=== PATIENT | male | born 1980 | race Caucasian/White ===

== ENCOUNTER 2017-02-20 18:53 | Emergency (ER) | payer MEDICAID ==
[~2017-02-20] VITALS: Ht 182.9 cm; Wt 108.9 kg
[2017-02-20 19:14] VITALS: BP 151/90
--- NOTE | 2017-02-20 21:42 | NUR ---
PT TAKEN TO BED 8
--- NOTE | 2017-02-20 21:50 | NUR ---
36/M c/o dizziness x1 week and also reports having chest pain this am. Pt denies chest pain or any pain at this time upon assessment. Pt assisted into a gown, placed on rectification printer, pulse oximetry and blood pressure monitoring. VSS. Lungs clear bilaterally, dry non productive cough noted. Pt report severe dizziness, denies syncope or loss of conciousness. Denies medical hx. Pt states he went to see PMD and was dx with bronchitis and prescribed a cough syrup and inhaler but pt states "I don't feel any better and the dizziness is still bothering me." AOX4, qatari speaking, clear speech.
--- NOTE | 2017-02-20 21:54 | NUR ---
Dr. Bah evaluating patient at bedside.
--- NOTE | 2017-02-20 22:21 | NUR ---
Lab at bedside for blood draw.
[2017-02-20 22:34] LABS: MEAN CORPUSCULAR HGB CONC 32 g/dL (33-37); WHITE BLOOD COUNT (AUTO) 12.8 K/uL (4.8-10.8)
[2017-02-20 22:38] LABS: HEMATOCRIT 46.7 % (36-52); MEAN CORPUSCULAR HEMOGLOBIN 26 pg (27-31); MEAN CORPUSCULAR VOLUME 82 fL (80-94); PLATELET COUNT (AUTO) 317 K/uL (140-450); RED BLOOD CELL COUNT(AUTO) 5.71 MIL/uL (4.20-6.10); RED CELL DISTRIBUTION WIDTH 15.1 % (11.6-13.7)
[2017-02-20 22:44] LABS: CARBON DIOXIDE 28.8 mmol/L (21-32); CREATININE 0.9 mg/dL (0.7-1.3); POTASSIUM 3.8 mmol/L (3.5-5.1)
[2017-02-20 22:46] LABS: EOSINOPHILS % (MANUAL) 2 % (0-4); LYMPHOCYTES % (MANUAL) 32 % (20-46); MONOCYTES % (MANUAL) 3 % (5-12)
--- NOTE | 2017-02-20 22:55 | NUR ---
Patient appears to be resting comfortably in bed. Vital Signs within normal limits. Respirations even and unlabored.
[2017-02-20 23:26] VITALS: BP 141/87
--- NOTE | 2017-02-20 23:26 | NUR ---
Patient discharged with v/s stable. Written and verbal after care instructions given and explained. Patient alert, oriented and verbalized understanding of instructions. Ambulatory with steady gait. All questions addressed prior to discharge. ID band removed. Patient advised to follow up with PMD. Rx of Naprosyn 500mg and Azithromycin 250mg given. Patient educated on indication of medication including possible reaction and side effects. Opportunity to ask questions provided and answered.
== END 2017-02-20 23:26 | disposition home or self-care (01) ==
LOC: MED 18:53
DX: J20.9 Acute bronchitis, unspecified (principal); R07.89 Other chest pain; F17.210 Nicotine dependence, cigarettes, uncomplicated
CPT/HCPCS: 36415; 71010; 80048; 84484; 85025; 93005; 99285

== ENCOUNTER 2017-02-22 07:05 | Emergency (ER) | payer MEDICAID ==
[~2017-02-22] VITALS: Ht 180.3 cm; Wt 106.7 kg
[2017-02-22 07:14] VITALS: BP 129/100
--- NOTE | 2017-02-22 07:18 | NUR ---
AMBULATED TO ER BED 5
--- NOTE | 2017-02-22 07:23 | NUR ---
PATIENT PRESENTS TO ED WITH DIZZINESS X15 DAYS--DENIES TRAUMA OR RECENT INJURY, FULL CLEAR SPEECH, NO FACIAL ASYMMETRY, MOVING ALL EXTREMITIES EQUALLY---DIZZINESS WORSE WITH SUDDEN MOVEMENTS . PT STATES . DENIES N/V/D; SKIN IS PINK/WARM/DRY; AAOX4 WITH EVEN AND STEADY GAIT; LUNGS CLEAR BL; HR EVEN AND REGULAR; PT DENIES ANY FEVER, CP, SOB, OR COUGH AT THIS TIME; PATIENT STATES PAIN OF 0/10 AT THIS TIME; VSS; PATIENT POSITIONED FOR COMFORT; HOB ELEVATED; BEDRAILS UP X2; BED DOWN. ER MD MADE AWARE OF PT STATUS.
[2017-02-22] MEDS ORDERED: NACL 0.9% 1,000 ML IV ONE (07:45)
[2017-02-22] MEDS ORDERED: MECLIZINE 25 MG TAB PO ONE (07:45)
--- NOTE | 2017-02-22 08:00 | NUR ---
PT WANTED TO WAIT BEFORE LABS WERE DRAWN UNTIL HE WAS APPROVED BY [facility]---PT CONCERNED OVER POTENTIAL BILL --- [facility] PATIENT ADMISSION PERSON WILL BE NOTIFIED.
[2017-02-22 08:31] LABS: HEMATOCRIT 46.4 % (36-52); HEMOGLOBIN 14.8 g/dL (12.0-18.0); MEAN CORPUSCULAR HEMOGLOBIN 26 pg (27-31); MEAN CORPUSCULAR HGB CONC 32 g/dL (33-37); MEAN CORPUSCULAR VOLUME 82 fL (80-94); PLATELET COUNT (AUTO) 305 K/uL (140-450); RED BLOOD CELL COUNT(AUTO) 5.68 MIL/uL (4.20-6.10); RED CELL DISTRIBUTION WIDTH 14.9 % (11.6-13.7); WHITE BLOOD COUNT (AUTO) 7.8 K/uL (4.8-10.8)
[2017-02-22 08:59] LABS: ANION GAP 14.9 (8-16); CARBON DIOXIDE 27.3 mmol/L (21-32); CREATININE 0.9 mg/dL (0.7-1.3); POTASSIUM 4.2 mmol/L (3.5-5.1); PROTHROMBIN TIME 9.2 secs (10.8-13.4)
[2017-02-22 09:04] LABS: LYMPHOCYTES % (MANUAL) 22 % (20-46); MONOCYTES % (MANUAL) 10 % (5-12)
[2017-02-22 09:05] LABS: ALBUMIN 3.6 g/dL (3.4-5.0); TOTAL BILIRUBIN 0.4 mg/dL (0.0-1.0)
--- NOTE | 2017-02-22 10:00 | NUR ---
PT RESTING WITH OU CLOSED-FEET CROSSED AND HAND BEHIND HEAD---NO GRIMACE NO MOAN NOTED
[2017-02-22 10:50] VITALS: BP 134/80
--- NOTE | 2017-02-22 10:50 | NUR ---
ambulatory with steady gait---instructed to f/u with 's group, labs and ct head results handed to pt to take to f/u Patient discharged with v/s stable. Written and verbal after care instructions given and explained. Patient verbalized understanding. Ambulatory with steady gait. All questions addressed prior to discharge. Advised to follow up with PMD.
== END 2017-02-22 10:50 | disposition home or self-care (01) ==
LOC: MED 07:05
DX: R42 Dizziness and giddiness (principal); R03.0 Elevated blood-pressure reading, without diagnosis of hypertension
CPT/HCPCS: 36415; 70450; 80053; 85025; 85610; 85730; 93005; 96360; 99285; J7030; J8597

== ENCOUNTER 2020-04-25 07:40 | Emergency (ER) | payer MEDICAID, SELFPAY ==
[~2020-04-25] VITALS: Ht 182.9 cm; Wt 93.9 kg
[2020-04-25 07:43] VITALS: BP 130/76
--- NOTE | 2020-04-25 07:57 | NUR ---
PATIENT AMBULATED TO ER BED 01
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
--- NOTE | 2020-04-25 08:28 | NUR ---
ATTENDANCE SECRETARY AT BEDSIDE AND LABS WERE DRAWN
[2020-04-25 08:35] LABS: BASOPHILS % (AUTO) 0.8 % (0.0-2.0); EOSINOPHILS # (AUTO) 0.2 K/uL (0-0.4); EOSINOPHILS % (AUTO) 3.6 % (0.0-4.0); HEMATOCRIT 43.2 % (36-52); HEMOGLOBIN 14.3 g/dL (12.0-18.0); LYMPHOCYTES # (AUTO) 1.8 K/uL (2.0-11.5); LYMPHOCYTES % (AUTO) 31.2 % (20.5-51.1); MEAN CORPUSCULAR HEMOGLOBIN 27 pg (27-31); MEAN CORPUSCULAR HGB CONC 33 g/dL (33-37); MEAN CORPUSCULAR VOLUME 80.1 fL (80-94); MONOCYTES # (AUTO) 0.4 K/uL (0.8-1.0); MONOCYTES % (AUTO) 7.4 % (1.7-9.3); NEUTROPHILS # (AUTO) 3.2 K/uL (1.8-7.7); PLATELET COUNT (AUTO) 275 K/uL (140-450); RED BLOOD CELL COUNT(AUTO) 5.39 MIL/uL (4.20-6.10); WHITE BLOOD COUNT (AUTO) 5.7 K/uL (4.8-10.8)
--- NOTE | 2020-04-25 08:35 | NUR ---
EKG PERFORMED AT BEDSIDE, NORMAL SINUS
--- NOTE | 2020-04-25 08:41 | NUR ---
X RAY AT BEDSIDE
[2020-04-25 08:48] LABS: ALBUMIN 3.9 g/dL (3.4-5.0); ANION GAP 10.2 (8-16); CARBON DIOXIDE 28.5 mmol/L (21-32); CREATININE 0.8 mg/dL (0.6-1.3); POTASSIUM 3.7 mmol/L (3.5-5.1); TOTAL BILIRUBIN 0.5 mg/dL (0.0-1.0)
[2020-04-25 09:30] VITALS: BP 130/76
== END 2020-04-25 09:30 | disposition home or self-care (01) ==
LOC: MED 07:40
DX: R05 Cough (principal); R07.2 Precordial pain; F41.9 Anxiety disorder, unspecified; I10 Essential (primary) hypertension
CPT/HCPCS: 36415; 71045; 80053; 83690; 83880; 84484; 85025; 93005; 99285

== ENCOUNTER 2020-05-01 13:53 | Emergency (ER) | payer MEDICAID, SELFPAY ==
[~2020-05-01] VITALS: Ht 182.9 cm; Wt 122.5 kg
[2020-05-01 14:14] VITALS: BP 134/96
--- NOTE | 2020-05-01 14:55 | NUR ---
PATIENT PRESENTS TO ED WITH C/O DIZZINESS AND ANXIETY WITH CHEST DISCOMFORT. . PT STATES HAS HISTORY OF COVID 1.5 MONTHS AGO. HAD (-) COVID TEST ON 04/07/20. DENIES N/V/D; SKIN IS PINK/WARM/DRY; AAOX4 WITH EVEN AND STEADY GAIT; LUNGS CLEAR BL; HR EVEN AND REGULAR; PT DENIES ANY FEVER, CP, SOB, OR COUGH AT THIS TIME; PATIENT STATES PAIN OF 0/10 AT THIS TIME; VSS; PATIENT POSITIONED FOR COMFORT; HOB ELEVATED; BEDRAILS UP X2; BED DOWN. ER MD MADE AWARE OF PT STATUS.
[2020-05-01] MEDS ORDERED: LORazepam 1 MG TAB PO ONE (15:15)
[2020-05-01] MEDS ORDERED: MECLIZINE 25 MG TAB PO ONE (15:15)
[2020-05-01 15:55] LABS: BASOPHILS # (AUTO) 0.1 K/uL (0.00-0.22); BASOPHILS % (AUTO) 0.8 % (0.0-2.0); EOSINOPHILS % (AUTO) 0.4 % (0.0-4.0); HEMATOCRIT 43.9 % (36-52); HEMOGLOBIN 14.2 g/dL (12.0-18.0); LYMPHOCYTES # (AUTO) 2.7 K/uL (2.0-11.5); LYMPHOCYTES % (AUTO) 32.5 % (20.5-51.1); MEAN CORPUSCULAR HEMOGLOBIN 26 pg (27-31); MEAN CORPUSCULAR HGB CONC 32 g/dL (33-37); MEAN CORPUSCULAR VOLUME 81.1 fL (80-94); MONOCYTES # (AUTO) 0.5 K/uL (0.8-1.0); MONOCYTES % (AUTO) 5.4 % (1.7-9.3); NEUTROPHILS # (AUTO) 5.1 K/uL (1.8-7.7); NEUTROPHILS % (AUTO) 60.9 % (42.2-75.2); PLATELET COUNT (AUTO) 289 K/uL (140-450); RED BLOOD CELL COUNT(AUTO) 5.41 MIL/uL (4.20-6.10); RED CELL DISTRIBUTION WIDTH 15.9 % (11.6-13.7); WHITE BLOOD COUNT (AUTO) 8.4 K/uL (4.8-10.8)
[2020-05-01 16:26] LABS: ANION GAP 13.6 (8-16); CARBON DIOXIDE 27.7 mmol/L (21-32); CREATININE 0.8 mg/dL (0.6-1.3); POTASSIUM 3.3 mmol/L (3.5-5.1)
--- NOTE | 2020-05-01 17:00 | NUR ---
RESTING MORE COMFORTABLY. DENIES DIZZINESS AND STATES IS FEELING LESS ANXIOUS.
[2020-05-01 17:40] VITALS: BP 134/96
--- NOTE | 2020-05-01 17:40 | NUR ---
Patient discharged with v/s stable. Written and verbal after care instructions given and explained. Patient alert, oriented and verbalized understanding of instructions. Ambulatory with steady gait. All questions addressed prior to discharge. ID band removed. Patient advised to follow up with PMD. Rx of ATIVAN AND MECLIZINE given. Patient educated on indication of medication including possible reaction and side effects. Opportunity to ask questions provided and answered.
== END 2020-05-01 17:40 | disposition home or self-care (01) ==
LOC: MED 13:53
DX: F41.9 Anxiety disorder, unspecified (principal); R42 Dizziness and giddiness; F17.210 Nicotine dependence, cigarettes, uncomplicated; I10 Essential (primary) hypertension; I51.89 Other ill-defined heart diseases
CPT/HCPCS: 36415; 71045; 80048; 84484; 85025; 99285; J8597

== ENCOUNTER 2021-06-12 21:01 | Emergency (ER) | payer SELFPAY ==
[~2021-06-12] VITALS: Ht 177.8 cm; Wt 104.3 kg
[2021-06-12 21:45] VITALS: BP 188/90
--- NOTE | 2021-06-12 21:48 | NUR ---
TO LOBBY A/W BED AMBULATORY
[2021-06-12] MEDS ORDERED: ONDANSETRON 4 MG ODT PO ONE (22:40)
[2021-06-12] MEDS ORDERED: CLONIDINE HYDROCHLORIDE 0.1 MG TAB PO ONE (22:40)
--- NOTE | 2021-06-12 23:00 | NUR ---
SWABS FOR ROSELINE, INFLUENZA SENT TO LAB
--- NOTE | 2021-06-12 23:24 | NUR ---
Nilesh fishman in [facility] - 06/12/[address] at [address] [facility], LEFT ARM, BP 156 04, HR 81 SAO2 99, RT ARM , BP 159/96, HR.79 , SAO2 99 STANDING LEFT ARM, BP 152/ 90 , HR 85, SAO2 100, RT ARM , BP 158/ 93, HR 81, SAO2 100
[2021-06-12 23:33] LABS: BASOPHILS # (AUTO) 0.1 K/uL (0.00-0.22); BASOPHILS % (AUTO) 0.9 % (0.0-2.0); EOSINOPHILS # (AUTO) 0.2 K/uL (0-0.4); EOSINOPHILS % (AUTO) 2.3 % (0.0-4.0); HEMATOCRIT 42.9 % (36-52); HEMOGLOBIN 14.5 g/dL (12.0-18.0); LYMPHOCYTES # (AUTO) 2.8 K/uL (2.0-11.5); LYMPHOCYTES % (AUTO) 36.3 % (20.5-51.1); MEAN CORPUSCULAR HEMOGLOBIN 27 pg (27-31); MEAN CORPUSCULAR HGB CONC 34 g/dL (33-37); MEAN CORPUSCULAR VOLUME 80.4 fL (80-94); MONOCYTES # (AUTO) 0.7 K/uL (0.8-1.0); MONOCYTES % (AUTO) 8.6 % (1.7-9.3); NEUTROPHILS % (AUTO) 51.9 % (42.2-75.2); PLATELET COUNT (AUTO) 304 K/uL (140-450); RED BLOOD CELL COUNT(AUTO) 5.34 MIL/uL (4.20-6.10); RED CELL DISTRIBUTION WIDTH 15.2 % (11.6-13.7); WHITE BLOOD COUNT (AUTO) 7.7 K/uL (4.8-10.8)
[2021-06-12 23:58] LABS: ANION GAP 12.7 (8-16); CARBON DIOXIDE 29.1 mmol/L (21-32); CREATININE 0.8 mg/dL (0.6-1.3); POTASSIUM 3.8 mmol/L (3.5-5.1); TOTAL BILIRUBIN 0.2 mg/dL (0.0-1.0)
[2021-06-13] MEDS ORDERED: MECL-303 PO (00:49)
[2021-06-13] MEDS ORDERED: CLON0.1T16 PO (00:49)
[2021-06-13 00:58] VITALS: BP 188/90
--- NOTE | 2021-06-13 00:58 | NUR ---
Patient discharged with v/s stable. Written and verbal after care instructions given and explained. Patient alert, oriented and verbalized understanding of instructions. Ambulatory with steady gait. All questions addressed prior to discharge. ID band removed. Patient advised to follow up with PMD. Rx of CLONIDINE HCL AND MECLIZINE HCL given. Patient educated on indication of medication including possible reaction and side effects. Opportunity to ask questions provided and answered. A/OX4, UNLABORED BREATHING WITH STEADY CHEST RISE AND FALL, STEADY GAIT, AND CALM DEMEANOR.
== END 2021-06-13 00:58 | disposition home or self-care (01) ==
LOC: MED 21:01
DX: R42 Dizziness and giddiness (principal); I11.9 Hypertensive heart disease without heart failure; Z20.822 Contact with and (suspected) exposure to COVID-19
CPT/HCPCS: 36415; 80053; 84484; 85025; 87426; 93005; 99284; Q0162

== ENCOUNTER 2023-09-10 10:20 | Emergency (ER) | payer OTHER ==
[~2023-09-10] VITALS: Ht 182.9 cm; Wt 108.9 kg
[~2023-09-10 10:20] MED LIST: CLON0.1T16 PO; MECL-303 PO
[2023-09-10 10:28] VITALS: BP 126/106; PULSE 94; RESP 18; TEMP 98.6; O2SAT 100
[2023-09-10] MEDS ORDERED: LID5T TP (12:30)
[2023-09-10] MEDS ORDERED: IBUP-2213 PO (12:30)
[2023-09-10] MEDS: KETOROLAC 30 MG/ML VIAL IM ONE (12:46)
[2023-09-10] MEDS: LIDOCAINE 5% 1 EA PATCH TP ONE (12:47)
== END 2023-09-10 12:48 | disposition home or self-care (01) ==
LOC: MED 10:20
DX: S43.492A Other sprain of left shoulder joint, initial encounter (principal); I11.9 Hypertensive heart disease without heart failure; Z79.899 Other long term (current) drug therapy; X58.XXXA Exposure to other specified factors, initial encounter; Y93.89 Activity, other specified; Y92.89 Other specified places as the place of occurrence of the external cause; Y99.8 Other external cause status
CPT/HCPCS: 73030; 96372; 99283; J1885